=== PATIENT | male | born 2005 | race Caucasian/White ===

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

== ENCOUNTER 2024-02-10 04:57 | Emergency (ER) | payer BC, SELFPAY ==
[2024-02-10 04:58] VITALS: BP 160/91; PULSE 74; RESP 18; TEMP 36.5; O2SAT 94; BMI 21.4
[2024-02-10] MEDS: LORazepam 2 MG/ML Syringe 1 MG IM (05:37)
[2024-02-10] MEDS: Lidocaine Jelly 2% 20 ML Syringe (URO-JET) 1 APPLIC TOPICAL (05:37)
--- NOTE | 2024-02-10 06:25 | ED.RN ---
This RN attempted to place an 18Fr sebastian catheter as ordered to treat this patient's urinary retention. This RN attempted and met resistance, this RN called for Tal Curiel RN to help advance the 18Fr sebastian catheter, that RN was unable to advance the 18Fr cath. This RN grabbed a coude 18Fr cath to attempt the special catheter. The coude would not advance. This RN notified MD of difficulty. MD ordered a smaller cath. This RN attempted a 15Fr straight cath, which would not advance. Claudia Royal RN also attempted to advance the 15Fr with no advance. Claudia Royal RN also attempted an 8Fr cath, which was not long enough to reach the cath. notified. As this RN was typing this note, the patient came out and stated that he was able to pee. He could not make it to the bathroom and he peed on the floor and in the trash can. notified.
--- NOTE | 2024-02-10 06:37 | EX.ED.DYSGE1 ---
HPI History of Present Illness Chief Complaint: Complaint Informant: patient and friend Narrative Narrative: Patient is a 19-year-old male with history of ADHD and anxiety as well as intermittent urinary retention. He was seen roughly 1 year ago secondary to urinary retention. Eventually he was able to urinate and he states since that time he has been fine and never followed up with urology. He denies taking any type of [id number] medication or illicit drug I could potentially stimulate a anticholinergic reaction and urinary retention. He states he has not been able to urinate for 8 hours and he has been having increased abdominal pain and discomfort. He states he did not present to the ER earlier as he has fears about the Elias catheter placement however as he has not been able to urinate he does feel that he will need a catheter and therefore comes in for evaluation. [facility] Medical History History of attention deficit hyperactivity disorder (ADHD) Home Medications ?Medication ?Instructions ?Recorded ?Last Taken ?Type NK 02/10/24 Unknown History Allergy/AdvReac Type Severity Reaction Status Date / Time No Known Allergies Allergy Verified 02/10/24 04:58 Surgical History History of tonsillectomy Social History Smoking Status: Current every day smoker tobacco type: e-cigarettes ROS ROS ED Constitutional Constitutional ED: Denies chills or fever(s) ENT ENT ED: Denies sore throat Cardiovascular Cardiovascular: Denies chest pain Respiratory/Chest Respiratory/Chest: Denies cough or dyspnea Gastrointestinal Gastrointestinal: Reports abdominal pain; Denies diarrhea, nausea or vomiting Genitourinary Genitourinary ED: Reports other Details: Positive urinary retention/hesitancy ; Denies dysuria Musculoskeletal Musculoskeletal: Denies back pain Integumentary Denies rash Neurologic Neurologic: Denies headache(s) Psychiatric Psychiatric: Reports anxiety Hematologic/Lymphatic Hematologic/Lymphatic: Denies easy bleeding or easy bruising EXAM Physical Exam Const Vital Signs: 02/10/24 04:58 02/10/24 06:43 Temperature 97.7 F L 97.6 F L Temperature Source Oral Pulse Rate 74 85 Respiratory Rate 18 18 Blood Pressure 160/91 H 158/93 H Blood Pressure Mean 114 114 Pulse Ox 94 98 Oxygen Delivery Method Room Air Positive well nourished and well developed General Appearance ED: well developed; Negative for pallor HEENT HEENT Narrative: Normocephalic atraumatic Eyes PERRL and EOMs intact bilaterally Neck supple Resp normal respiratory effort and clear to auscultation bilaterally Cardio regular rate and regular rhythm GI GI Narrative: In the suprapubic/midline lower abdominal region there is organomegaly consistent with a distended bladder and there is pain on palpation at this site. Remainder of the abdomen is soft and nontender without distention and bowel sounds are normal active Auscultation: normoactive bowel sounds Narrative: Normal circumcised male without blood or discharge from the urethral meatus. No testicular masses or swelling. No secondary soft tissue changes to suggest Kritsi's gangrene or infection. Back/Spine no CVA tenderness Extremity normal to inspection Neuro oriented x3, CN's II-XII intact bilaterally and no sensory deficits noted Sensorium / Orientation: alert Motor Exam: strength 5/5 throughout Psych Psych Narrative: Nervous/anxious affect Skin no rashes or lesions noted General Skin Exam: Negative for jaundice or pallor MDM MDM MDM Narrative Medical decision making narrative: Patient presenting to the ER hypertensive but otherwise with stable vitals. He had been seen roughly 1 year ago secondary to a similar event but had never followed up with urology. He was asked multiple times at this visit as well as during his last visit upon chart review about potential medication/illicit drugs that could lead to retention. The patient adamantly denied taking any kind of medication. Is been approximately 8 hours since his last reported urination and he does have distention on exam and bladder scan does show approximate 1 L of urine within the bladder. Secondary to this a decision was made to place a Elias catheter for bladder decompression. Despite multiple attempts with various catheter sizes there was no success in cannulating the bladder as there was resistance met at each attempt. Therefore the decision was made to transfer the patient to an outside facility as urology was not on-call. While attempting to perform the transfer the patient was able to spontaneously urinate in the ER. On reevaluation there is no longer organomegaly or pain on the abdominal exam. Bladder scan still shows a moderate amount of urine within the bladder. However the patient reports feeling much better and he states that now that he has been able to urinate he does not want a Elias catheter or transfered. Therefore at this time as his retention has been improved/resolved and the patient does not want transferred for emergent urology consultation will be discharging to follow-up with urology on an outpatient basis History & Record Review Discussion w/independent historian: Patient and Friend Discharge Plan Triage Chief Complaint: Complaint ED Provider: Diego Claudio Dx/Rx/DC Orders Clinical Impression: Acute urinary retention, ADHD Instructions: ED Urinary Retention, Male Prescriptions: No Action NK Primary Care Provider: Care Physician,No Primary Referrals: Javier Arias MD [Med Staff - Active Staff] - Care Physician,No Primary [Primary Care Provider] - Activity Restrictions/Additional Instructions: Please follow-up with urology to discuss further testing as a cause of your intermittent urinary retention. If you have any further concerns or worsening of symptoms please return to the ER for repeat evaluation Print Language: Armenian Disposition Disposition: Home, Self Care Discharge Date/Time: 02/10/24 06:45
[2024-02-10 06:43] VITALS: BP 158/93; PULSE 85; RESP 18; TEMP 36.4; O2SAT 98
== END 2024-02-10 06:45 | disposition home or self-care (01) ==
PROVIDERS: Emergency Provider Emergency Medicine; Visit Provider Emergency Medicine
DX: R33.9 Retention of urine, unspecified (principal); F90.9 Attention-deficit hyperactivity disorder, unspecified type; F17.210 Nicotine dependence, cigarettes, uncomplicated; F41.9 Anxiety disorder, unspecified
CPT/HCPCS: 96372; 99282

== ENCOUNTER → 2024-03-21 | Outpatient (CLI) | payer BC, SELFPAY | END | disposition home or self-care (01) | PROVIDERS: PCP Family Medicine; Referring Provider Urology; Visit Provider Urology | DX: R39.11 Hesitancy of micturition (principal) | CPT/HCPCS: 76770 ==